=== PATIENT | female | born 1990 | race Caucasian/White ===

== ENCOUNTER 2021-09-29 16:50 | Emergency (ER) | payer MEDICAID ==
[~2021-09-29] VITALS: Ht 152.4 cm; Wt 60.0 kg
[2021-09-29] MEDS ORDERED: LISI-186 PO (17:37)
[2021-09-29] MEDS ORDERED: PROM5SYR MT ×3 (21:22→23:25)
[2021-09-29 22:57] VITALS: BP 118/76
== END 2021-09-29 23:01 | disposition home or self-care (01) ==
LOC: ER 16:50
DX: U07.1 COVID-19 (principal); I10 Essential (primary) hypertension; J45.909 Unspecified asthma, uncomplicated
CPT/HCPCS: 99281